=== PATIENT | female | born 1980 | race Native Hawaiian/Other Pacific Islander ===

== ENCOUNTER 2021-05-27 08:35 | Outpatient (CLI) | payer BC, OTHER ==
[~2021-05-27] VITALS: Ht 165.1 cm; Wt 106.6 kg
== END 2021-05-27 20:06 | disposition home or self-care (01) ==
LOC: INF 08:35
PROVIDERS: ATTEND Internal Medicine
DX: Z23 Encounter for immunization (principal); U07.1 COVID-19; G47.419 Narcolepsy without cataplexy; G47.33 Obstructive sleep apnea (adult) (pediatric)
CPT/HCPCS: 96365; M0244